=== PATIENT | male | born 1980 | race Caucasian/White ===

== ENCOUNTER 2021-11-02 09:15 | Inpatient (IN) | payer OTHER ==
[2021-11-02 09:47] VITALS: BMI 31.0
[2021-11-02] MEDS ORDERED: IBUPROFEN 400 MG TABLET (FP) PO PRN (10:02)
[2021-11-02] MEDS ORDERED: DICYCLOMINE HCL 10 MG CAPSULE PO PRN (10:02)
[2021-11-02] MEDS ORDERED: IBUPROFEN 600 MG TABLET (FP) PO PRN (10:02)
[2021-11-02] MEDS ORDERED: BENZOCAINE/MENTHOL (CHLORASEPTIC ) LOZENGE MM PRN (10:02)
[2021-11-02] MEDS ORDERED: MAGNESIUM HYDROX 2400MG/30ML ORAL SUSPENSION 30 ML CUP PO PRN (10:02)
[2021-11-02] MEDS ORDERED: METHOCARBAMOL 500 MG TABLET PO PRN (10:02)
[2021-11-02] MEDS ORDERED: LOPERAMIDE HCL 2 MG CAPSULE PO PRN (10:02)
[2021-11-02] MEDS ORDERED: MAGNESIUM CITRATE 300 ML BOTTLE PO PRN (10:02)
[2021-11-02] MEDS ORDERED: ONDANSETRON *ODT* 4 MG TABLET SL PRN (10:02)
[2021-11-02] MEDS ORDERED: MAG HYDROX/AL HYDROX/SIMETH 30 ML UNIT-DOSE CUP PO PRN (10:02)
[2021-11-02] MEDS ORDERED: NALOXONE HCL (KLOXXADO) 8 MG SPRAY NS PRN (10:02)
[2021-11-02] MEDS ORDERED: BISMUTH SUBSALICYLATE 262 MG/15 ML BTL PO PRN (10:02)
[2021-11-02] MEDS ORDERED: ACETAMINOPHEN 325 MG TABLET (FP) PO PRN ×2 (10:02)
[2021-11-02] MEDS ORDERED: NICOTINE 10 MG CARTRIDGE (INHALER) IH PRN (10:02)
[2021-11-02] MEDS ORDERED: chlordiazePOXIDE HCL 25 MG CAPSULE PO PRN (10:02)
[2021-11-02] MEDS: chlordiazePOXIDE HCL 25 MG CAPSULE PO SCH ×3 (11:39→22:11)
[2021-11-02] MEDS: NICOTINE 21 MG/24 HOURS TOPICAL PATCH TD SCH (11:40)
[2021-11-02] MEDS ORDERED: ALBUTEROL SO4 HFA INHALER IH PRN (13:32)
[2021-11-02] MEDS: hydrOXYzine PAMOATE 25 MG CAPSULE (FP) PO SCH ×3 (14:54→22:11)
[2021-11-02] MEDS: MELATONIN 5 MG TABLETS PO SCH (22:10)
[2021-11-02] MEDS: THIAMINE HCL 100 MG TABLET (FP) PO SCH (22:11)
[2021-11-03] MEDS: hydrOXYzine PAMOATE 25 MG CAPSULE (FP) PO SCH ×5 (05:39→22:34)
[2021-11-03] MEDS: chlordiazePOXIDE HCL 25 MG CAPSULE PO SCH ×4 (05:39→22:34)
[2021-11-03] MEDS: NICOTINE 21 MG/24 HOURS TOPICAL PATCH TD SCH (10:28)
[2021-11-03] MEDS: PRENATAL VITAMINS W/ FOLIC ACID TABLET (FP) PO SCH (10:28)
[2021-11-03 10:53] LABS: HEMATOCRIT 44.6 % (35.4-49); MCH 30.4 pg (25.7-33.7); MCHC 33.6 g/dl (32.0-35.9); MEAN CELL VOLUME 90.7 fl (80-96); MEAN PLT VOLUME 8.9 fl (7.5-11.1); PLATELET COUNT 304 10^3/uL (134-434); RBC 4.92 M/mm3 (4.00-5.60); RDW 13.9 % (11.9-15.9); WHITE BLOOD COUNT 12.8 K/mm3 (4.0-10.0)
[2021-11-03 11:05] LABS: ALBUMIN 4.1 g/dl (3.4-5.0); CALCIUM 9.6 mg/dL (8.5-10.1)
[2021-11-03 11:08] LABS: CREATININE 0.9 mg/dL (0.55-1.3)
[2021-11-03 11:10] LABS: BILIRUBIN,TOTAL 0.3 mg/dL (0.2-1)
[2021-11-03 11:13] LABS: TOT PROT 7.8 g/dl (6.4-8.2)
[2021-11-03 14:16] LABS: HIV INTERPRETATION NEGATIVE (NEGATIVE)
[2021-11-03] MEDS: MELATONIN 5 MG TABLETS PO SCH (22:33)
[2021-11-03] MEDS: THIAMINE HCL 100 MG TABLET (FP) PO SCH (22:34)
[2021-11-04] MEDS: hydrOXYzine PAMOATE 25 MG CAPSULE (FP) PO SCH ×5 (06:11→22:30)
[2021-11-04] MEDS: chlordiazePOXIDE HCL 25 MG CAPSULE PO SCH ×4 (06:11→22:31)
[2021-11-04] MEDS: PRENATAL VITAMINS W/ FOLIC ACID TABLET (FP) PO SCH (10:09)
[2021-11-04] MEDS: NICOTINE 21 MG/24 HOURS TOPICAL PATCH TD SCH (10:10)
[2021-11-04] MEDS: POTASSIUM CHLORIDE TABS 20 MEQ TABLET.ER (FP) PO SCH (11:56)
[2021-11-04] MEDS: MELATONIN 5 MG TABLETS PO SCH (22:29)
[2021-11-04] MEDS: THIAMINE HCL 100 MG TABLET (FP) PO SCH (22:29)
[2021-11-05] MEDS ORDERED: chlordiazePOXIDE HCL 10 MG CAPSULE PO PRN
[2021-11-05] MEDS: chlordiazePOXIDE HCL 10 MG CAPSULE PO SCH ×2 (06:58→10:32)
[2021-11-05] MEDS: hydrOXYzine PAMOATE 25 MG CAPSULE (FP) PO SCH ×5 (06:59→22:29)
[2021-11-05] MEDS: POTASSIUM CHLORIDE TABS 20 MEQ TABLET.ER (FP) PO SCH (10:32)
[2021-11-05] MEDS: PRENATAL VITAMINS W/ FOLIC ACID TABLET (FP) PO SCH (10:32)
[2021-11-05] MEDS: NICOTINE 21 MG/24 HOURS TOPICAL PATCH TD SCH (10:33)
[2021-11-05] MEDS: chlordiazePOXIDE 5 MG CAPSULE PO SCH ×2 (17:33→22:30)
[2021-11-05] MEDS: THIAMINE HCL 100 MG TABLET (FP) PO SCH (22:29)
[2021-11-05] MEDS: MELATONIN 5 MG TABLETS PO SCH (22:29)
[2021-11-06] MEDS ORDERED: chlordiazePOXIDE HCL 10 MG CAPSULE PO SCH (05:00)
[2021-11-06] MEDS: hydrOXYzine PAMOATE 25 MG CAPSULE (FP) PO SCH ×5 (06:25→22:39)
[2021-11-06] MEDS: chlordiazePOXIDE 5 MG CAPSULE PO SCH ×2 (06:25→17:58)
[2021-11-06] MEDS: POTASSIUM CHLORIDE TABS 20 MEQ TABLET.ER (FP) PO SCH (11:00)
[2021-11-06] MEDS: PRENATAL VITAMINS W/ FOLIC ACID TABLET (FP) PO SCH (11:01)
[2021-11-06] MEDS: NICOTINE 21 MG/24 HOURS TOPICAL PATCH TD SCH (11:01)
[2021-11-06] MEDS: THIAMINE HCL 100 MG TABLET (FP) PO SCH (22:39)
[2021-11-06] MEDS: MELATONIN 5 MG TABLETS PO SCH (22:39)
[2021-11-07] MEDS ORDERED: chlordiazePOXIDE HCL 10 MG CAPSULE PO ONE (05:00)
[2021-11-07] MEDS ORDERED: chlordiazePOXIDE 5 MG CAPSULE PO ONE (05:00)
[2021-11-07] MEDS: hydrOXYzine PAMOATE 25 MG CAPSULE (FP) PO SCH ×2 (05:29→10:36)
[2021-11-07 06:19] VITALS: TEMP 96.9
[2021-11-07 09:19] VITALS: BP 118/64; PULSE 66
[2021-11-07] MEDS: NICOTINE 21 MG/24 HOURS TOPICAL PATCH TD SCH (10:35)
[2021-11-07] MEDS: PRENATAL VITAMINS W/ FOLIC ACID TABLET (FP) PO SCH (10:36)
[2021-11-07] MEDS: POTASSIUM CHLORIDE TABS 20 MEQ TABLET.ER (FP) PO SCH (10:36)
== END 2021-11-07 11:40 | disposition home or self-care (01) | DRG 897 ==
LOC: YASAS 09:15 → Y3N 10:17
PROVIDERS: ADMIT Allergy & Immunology; ATTEND Family Medicine Addiction Medicine
PROC: HZ2ZZZZ Detoxification Services for Substance Abuse Treatment (ICD-10-PCS; principal; 2021-11-02)
DX: F10.230 Alcohol dependence with withdrawal, uncomplicated (principal); F14.10 Cocaine abuse, uncomplicated; F16.10 Hallucinogen abuse, uncomplicated; F12.10 Cannabis abuse, uncomplicated; F17.210 Nicotine dependence, cigarettes, uncomplicated; F19.24 Other psychoactive substance dependence with psychoactive substance-induced mood disorder; F41.1 Generalized anxiety disorder; F32.A Depression, unspecified; E87.6 Hypokalemia; J45.909 Unspecified asthma, uncomplicated; J30.2 Other seasonal allergic rhinitis; K21.9 Gastro-esophageal reflux disease without esophagitis; Z91.19 Patient's noncompliance with other medical treatment and regimen
CPT/HCPCS: 36415; 80053; 85027; 86780; 87389; 93005; 93010; C9803-CS; U0003; U0005

== ENCOUNTER 2023-02-01 14:10 | Inpatient (IN) | payer OTHER ==
[2023-02-01 17:16] VITALS: BMI 28.0
[2023-02-01] MEDS ORDERED: IBUPROFEN 400 MG TABLET (FP) PO PRN (20:24)
[2023-02-01] MEDS ORDERED: POLYETHYLENE GLYCOL (HEALTHYLAX) 3350 17 GM PACKET PO PRN (20:24)
[2023-02-01] MEDS ORDERED: ONDANSETRON *ODT* 4 MG TABLET SL PRN (20:24)
[2023-02-01] MEDS ORDERED: IBUPROFEN 600 MG TABLET (FP) PO PRN (20:24)
[2023-02-01] MEDS ORDERED: NICOTINE POLACRILEX 2 MG GUM BUC PRN (20:24)
[2023-02-01] MEDS ORDERED: BENZONATATE 200 MG CAPSULE PO PRN (20:24)
[2023-02-01] MEDS ORDERED: NALOXONE HCL 0.4 MG/ML VIAL IM PRN (20:24)
[2023-02-01] MEDS ORDERED: NALOXONE HCL (KLOXXADO) 8 MG SPRAY NS PRN (20:24)
[2023-02-01] MEDS ORDERED: hydrOXYzine PAMOATE 25 MG CAPSULE (FP) PO PRN (20:24)
[2023-02-01] MEDS ORDERED: BENZOCAINE/MENTHOL (CHLORASEPTIC ) LOZENGE MM PRN (20:24)
[2023-02-01] MEDS ORDERED: guaiFENesin 600 MG TABLET.ER (FP) PO PRN (20:24)
[2023-02-01] MEDS ORDERED: MAG HYDROX/AL HYDROX/SIMETH 30 ML UNIT-DOSE CUP PO PRN (20:24)
[2023-02-01] MEDS ORDERED: ACETAMINOPHEN 325 MG TABLET (FP) PO PRN (20:24)
[2023-02-01] MEDS ORDERED: DICYCLOMINE HCL 10 MG CAPSULE PO PRN (20:24)
[2023-02-01] MEDS ORDERED: BISMUTH SUBSALICYLATE 524 MG/30 ML PO PRN (20:24)
[2023-02-01] MEDS ORDERED: LOPERAMIDE HCL 2 MG CAPSULE PO PRN (20:24)
[2023-02-01] MEDS ORDERED: METHOCARBAMOL 500 MG TABLET PO PRN (20:24)
[2023-02-01] MEDS ORDERED: MAGNESIUM HYDROX 2400MG/30ML ORAL SUSPENSION 30 ML CUP PO PRN (20:24)
[2023-02-01] MEDS ORDERED: diazePAM 5 MG TABLET PO PRN (20:48)
[2023-02-01] MEDS ORDERED: ALBUTEROL SO4 HFA INHALER IH PRN (20:49)
[2023-02-01] MEDS: MELATONIN 5 MG TABLETS PO SCH (22:33)
[2023-02-01] MEDS: THIAMINE HCL 100 MG TABLET (FP) PO SCH (22:33)
[2023-02-01] MEDS: diazePAM 5 MG TABLET PO SCH (22:34)
[2023-02-02] MEDS: diazePAM 5 MG TABLET PO SCH ×4 (05:47→22:20)
[2023-02-02] MEDS ORDERED: NICOTINE 21 MG/24 HOURS TOPICAL PATCH TD SCH (10:00)
[2023-02-02] MEDS ORDERED: PRENATAL VITAMINS W/ FOLIC ACID TABLET (FP) PO SCH (10:00)
[2023-02-02 12:22] LABS: HEMATOCRIT 44.5 % (35.4-49); HEMOGLOBIN 14.5 GM/dL (11.7-16.9); MCH 30.3 pg (25.7-33.7); MCHC 32.6 g/dl (32.0-35.9); MEAN CELL VOLUME 92.8 fl (80-96); MEAN PLT VOLUME 8.8 fl (7.5-11.1); PLATELET COUNT 226 10^3/uL (134-434); RBC 4.79 M/mm3 (4.00-5.60); RDW 14.1 % (11.9-15.9); WHITE BLOOD COUNT 5.4 K/mm3 (4.0-10.0)
[2023-02-02 12:27] LABS: POTASSIUM 4.2 mmol/L (3.5-5.1)
[2023-02-02 12:33] LABS: ALBUMIN 3.5 g/dl (3.4-5.0); BLOOD UREA NITROGEN 12.9 mg/dL (7-18)
[2023-02-02 12:36] LABS: TOT PROT 6.7 g/dl (6.4-8.2)
[2023-02-02 12:37] LABS: BILIRUBIN,TOTAL 0.4 mg/dL (0.2-1)
[2023-02-02] MEDS: THIAMINE HCL 100 MG TABLET (FP) PO SCH (22:19)
[2023-02-02] MEDS: MELATONIN 5 MG TABLETS PO SCH (22:19)
[2023-02-03] MEDS ORDERED: diazePAM 5 MG TABLET PO SCH (06:00)
[2023-02-03 06:40] VITALS: RESP 18
[2023-02-03 09:03] VITALS: BP 122/73; PULSE 61; TEMP 98.1
[2023-02-04] MEDS ORDERED: diazePAM 5 MG TABLET PO SCH (06:00)
[2023-02-05] MEDS ORDERED: diazePAM 5 MG TABLET PO ONE (06:00)
== END 2023-02-03 09:25 | disposition left against medical advice (07) | DRG 894 ==
LOC: YASAS 14:10 → Y6N 21:14
PROVIDERS: ADMIT Allergy & Immunology; ATTEND Surgery
PROC: HZ2ZZZZ Detoxification Services for Substance Abuse Treatment (ICD-10-PCS; principal; 2023-02-01)
DX: F10.230 Alcohol dependence with withdrawal, uncomplicated (principal); F14.20 Cocaine dependence, uncomplicated; F16.20 Hallucinogen dependence, uncomplicated; F19.280 Other psychoactive substance dependence with psychoactive substance-induced anxiety disorder; F19.282 Other psychoactive substance dependence with psychoactive substance-induced sleep disorder; F33.0 Major depressive disorder, recurrent, mild; F13.230 Sedative, hypnotic or anxiolytic dependence with withdrawal, uncomplicated; F12.20 Cannabis dependence, uncomplicated; F17.210 Nicotine dependence, cigarettes, uncomplicated; F90.9 Attention-deficit hyperactivity disorder, unspecified type; J45.909 Unspecified asthma, uncomplicated; K21.9 Gastro-esophageal reflux disease without esophagitis
CPT/HCPCS: 36415; 80053; 85027; 86780; 87635; 93005; 93010

== ENCOUNTER 2023-07-29 20:45 | Inpatient (IN) | payer OTHER ==
[2023-07-29 21:11] VITALS: BMI 27.8
[2023-07-30] MEDS ORDERED: DICYCLOMINE HCL 10 MG CAPSULE PO PRN (01:08)
[2023-07-30] MEDS ORDERED: BENZONATATE 200 MG CAPSULE PO PRN (01:08)
[2023-07-30] MEDS ORDERED: IBUPROFEN 400 MG TABLET (FP) PO PRN (01:08)
[2023-07-30] MEDS ORDERED: guaiFENesin 600 MG TABLET.ER (FP) PO PRN (01:08)
[2023-07-30] MEDS ORDERED: NICOTINE POLACRILEX 4 MG GUM BUC PRN (01:08)
[2023-07-30] MEDS ORDERED: ONDANSETRON *ODT* 4 MG TABLET SL PRN (01:08)
[2023-07-30] MEDS ORDERED: NALOXONE HCL 0.4 MG/ML VIAL IM PRN (01:08)
[2023-07-30] MEDS ORDERED: IBUPROFEN 600 MG TABLET (FP) PO PRN (01:08)
[2023-07-30] MEDS ORDERED: NALOXONE HCL (KLOXXADO) 8 MG SPRAY NS PRN (01:08)
[2023-07-30] MEDS ORDERED: BENZOCAINE/MENTHOL (CHLORASEPTIC ) LOZENGE MM PRN (01:08)
[2023-07-30] MEDS ORDERED: BISMUTH SUBSALICYLATE 524 MG/30 ML PO PRN (01:08)
[2023-07-30] MEDS ORDERED: ACETAMINOPHEN 325 MG TABLET (FP) PO PRN (01:08)
[2023-07-30] MEDS ORDERED: LOPERAMIDE HCL 2 MG CAPSULE PO PRN (01:08)
[2023-07-30] MEDS: MAG HYDROX/AL HYDROX/SIMETH 30 ML UNIT-DOSE CUP PO PRN (04:27)
[2023-07-30] MEDS ORDERED: ALBUTEROL SO4 HFA INHALER IH PRN (07:05)
[2023-07-30] MEDS: PRENATAL VITAMINS W/ FOLIC ACID TABLET (FP) PO SCH (10:38)
[2023-07-30] MEDS: NICOTINE 14 MG/24 HOURS TOPICAL PATCH TD SCH (10:38)
[2023-07-30] MEDS: chlordiazePOXIDE HCL 25 MG CAPSULE PO SCH (10:38)
[2023-07-30] MEDS: THIAMINE HCL 100 MG TABLET (FP) PO SCH (22:09)
[2023-07-30] MEDS: MELATONIN 5 MG TABLETS PO SCH (22:09)
[2023-07-31] MEDS: chlordiazePOXIDE HCL 25 MG CAPSULE PO SCH (05:46)
[2023-07-31] MEDS: POLYETHYLENE GLYCOL (HEALTHYLAX) 3350 17 GM PACKET PO PRN (05:48)
[2023-08-01] MEDS: chlordiazePOXIDE HCL 25 MG CAPSULE PO PRN (01:27)
[2023-08-01] MEDS: MAGNESIUM HYDROX 2400MG/30ML ORAL SUSPENSION 30 ML CUP PO PRN (01:27)
[2023-08-01] MEDS: chlordiazePOXIDE HCL 10 MG CAPSULE PO SCH (05:19)
[2023-08-01] MEDS: METHOCARBAMOL 500 MG TABLET PO PRN (10:07)
[2023-08-01 13:02] LABS: HEMATOCRIT 41.8 % (35.4-49); HEMOGLOBIN 14.5 GM/dL (11.7-16.9); MCH 31.1 pg (25.7-33.7); MCHC 34.7 g/dl (32.0-35.9); MEAN CELL VOLUME 89.6 fl (80-96); MEAN PLT VOLUME 8.3 fl (7.5-11.1); PLATELET COUNT 200 10^3/uL (134-434); RBC 4.67 M/mm3 (4.00-5.60); RDW 13.7 % (11.9-15.9); WHITE BLOOD COUNT 5.1 K/mm3 (4.0-10.0)
[2023-08-01 13:25] LABS: POTASSIUM 3.9 mmol/L (3.5-5.1)
[2023-08-01 13:27] LABS: ALBUMIN 3.7 g/dl (3.4-5.0)
[2023-08-01 13:28] LABS: CALCIUM 8.9 mg/dL (8.5-10.1)
[2023-08-01 13:29] LABS: BLOOD UREA NITROGEN 14.6 mg/dL (7-18)
[2023-08-01 13:30] LABS: CREATININE 0.9 mg/dL (0.55-1.3)
[2023-08-01 13:32] LABS: BILIRUBIN,TOTAL 0.4 mg/dL (0.2-1); TOT PROT 7.1 g/dl (6.4-8.2)
[2023-08-02] MEDS ORDERED: chlordiazePOXIDE HCL 10 MG CAPSULE PO PRN
[2023-08-02] MEDS: chlordiazePOXIDE HCL 10 MG CAPSULE PO SCH (05:35)
[2023-08-02] MEDS: PANTOPRAZOLE 40 MG TABLET PO ONE (11:11)
[2023-08-02] MEDS: hydrOXYzine PAMOATE 25 MG CAPSULE (FP) PO PRN (17:19)
[2023-08-03] MEDS: chlordiazePOXIDE HCL 10 MG CAPSULE PO ONE (05:20)
[2023-08-04 13:51] LABS: HIV INTERPRETATION NEGATIVE (NEGATIVE)
[2023-08-04 15:50] LABS: PH,URINE 7.5 (5.0-8.0); URINE APPEARANCE CLEAR; URINE BILIRUBIN NEGATIVE (NEGATIVE); URINE COLOR YELLOW; URINE GLUCOSE (UA) NEGATIVE (NEGATIVE); URINE KETONE NEGATIVE (NEGATIVE); URINE LEUK ESTERASE NEGATIVE (NEGATIVE); URINE NITRITE NEGATIVE (NEGATIVE); URINE PROTEIN NEGATIVE (NEGATIVE); URINE UROBILINOGEN 0.2 mg/dL (0.2-1.0)
[2023-08-05 07:01] VITALS: BP 112/75; PULSE 79; RESP 18; TEMP 97.5
== END 2023-08-05 11:13 | disposition left against medical advice (07) | DRG 894 ==
LOC: YASAS 20:45 → Y6N 07-30 01:44 → Y3W 08-03 13:03
PROVIDERS: ADMIT Allergy & Immunology; ATTEND Psychiatry & Neurology Pain Medicine
PROC: HZ2ZZZZ Detoxification Services for Substance Abuse Treatment (ICD-10-PCS; 2023-07-30)
PROC: HZ42ZZZ Group Counseling for Substance Abuse Treatment, Cognitive-Behavioral (ICD-10-PCS; principal; 2023-08-03)
DX: F10.20 Alcohol dependence, uncomplicated (principal); F14.20 Cocaine dependence, uncomplicated; F13.20 Sedative, hypnotic or anxiolytic dependence, uncomplicated; F16.20 Hallucinogen dependence, uncomplicated; F19.282 Other psychoactive substance dependence with psychoactive substance-induced sleep disorder; F19.280 Other psychoactive substance dependence with psychoactive substance-induced anxiety disorder; F17.210 Nicotine dependence, cigarettes, uncomplicated; F19.24 Other psychoactive substance dependence with psychoactive substance-induced mood disorder; F32.A Depression, unspecified; F90.9 Attention-deficit hyperactivity disorder, unspecified type; K76.0 Fatty (change of) liver, not elsewhere classified; J45.20 Mild intermittent asthma, uncomplicated; Z28.310 Unvaccinated for COVID-19; Z28.9 Immunization not carried out for unspecified reason
CPT/HCPCS: 36415; 80053; 80305; 81003; 82140; 85027; 86780; 87389; 87635; 93005; 93010